=== PATIENT | female | born 1985 | race Two or more races ===

== ENCOUNTER 2017-10-07 10:37 | Emergency (ER) | payer MEDICAID ==
[~2017-10-07] VITALS: Ht 152.4 cm; Wt 59.0 kg
[2017-10-07 11:36] LABS: Basophils # (auto) 0 uL; Hemoglobin 10.8 g/dL (12.2-16.2); Lymphocytes # (auto) 1.8 uL; Mean Corpuscular Hgb Conc. 31.3 g/dL (32.0-36.0); Neutrophils # (auto) 2.3 uL; White Blood Cell 4.7 10^3/uL (4.4-10.8)
[2017-10-07 11:37] LABS: Basophils % (auto) 0.9 % (0.0-2.0); Eosinophils # (auto) 0.1 uL; Eosinophils % (auto) 2.9 % (0.0-7.0); Hematocrit 34.4 % (36.0-46.0); Lymphocytes % (auto) 37.9 % (10.0-50.0); Mean Corpuscular Hemoglobin 23.2 pg (28.0-32.0); Mean Corpuscular Volume 74.2 fL (80.0-100.0); Monocytes # (auto) 0.5 uL; Monocytes % (auto) 9.9 % (0.0-12.0); Neutrophils % (auto) 48.4 % (37.0-80.0); Nucleated Red Blood Cells % 0.6 %; Platelet Count (auto) 326 10^3/uL (140-450); Red Blood Cells 4.64 10^6/uL (4.0-5.20); Red Cell Distribution Width 16.1 % (11.8-14.3)
[2017-10-07 11:57] LABS: Albumin 3.8 g/dL (3.4-5.0); BUN/Creatinine Ratio 24.5; Bilirubin, Total 0.5 mg/dL (0.2-1.0); Calcium 8.6 mg/dL (8.5-10.1); Potassium 4.1 mmol/L (3.5-5.1); Total Protein 7.7 g/dL (6.4-8.2)
[2017-10-07] MEDS ORDERED: PANTOPRAZOLE 40 MG TAB PO ONE (12:00)
[2017-10-07 12:23] LABS: Amylase 51 U/L (25-115); Lipase 98 U/L (73-393)
[2017-10-07 13:19] LABS: Urine Bacteria FEW /hpf (None Seen); Urine Blood Negative /uL (Negative); Urine Specific Gravity 1.027 (1.001-1.035); Urine WBC 13 /hpf (0 - 5)
[2017-10-07 13:33] VITALS: BP 120/83
== END 2017-10-07 13:47 | disposition home or self-care (01) ==
LOC: ER 10:37
DX: N39.0 Urinary tract infection, site not specified (principal); K29.70 Gastritis, unspecified, without bleeding; M19.90 Unspecified osteoarthritis, unspecified site
CPT/HCPCS: 36415; 80053; 81001; 82150; 83690; 85025

== ENCOUNTER 2017-10-10 19:04 | Emergency (ER) | payer MEDICAID ==
[~2017-10-10] VITALS: Ht 152.4 cm; Wt 61.2 kg
[2017-10-10 20:41] LABS: Urine Bacteria NONE SEEN /hpf (None Seen); Urine Blood Negative /uL (Negative); Urine Specific Gravity 1.027 (1.001-1.035); Urine WBC 1 /hpf (0 - 5)
[2017-10-10 20:47] LABS: Basophils # (auto) 0 uL; Eosinophils # (auto) 0.2 uL; Monocytes # (auto) 0.5 uL
[2017-10-10 20:50] LABS: Basophils % (auto) 0.5 % (0.0-2.0); Eosinophils % (auto) 2.7 % (0.0-7.0); Hematocrit 32.6 % (36.0-46.0); Hemoglobin 10.5 g/dL (12.2-16.2); Lymphocytes # (auto) 2.1 uL; Lymphocytes % (auto) 31.1 % (10.0-50.0); Mean Corpuscular Hemoglobin 23.9 pg (28.0-32.0); Mean Corpuscular Hgb Conc. 32.2 g/dL (32.0-36.0); Monocytes % (auto) 7.8 % (0.0-12.0); Neutrophils % (auto) 57.9 % (37.0-80.0); Nucleated Red Blood Cells % 0.2 %; Platelet Count (auto) 301 10^3/uL (140-450); Red Blood Cells 4.41 10^6/uL (4.0-5.20); Red Cell Distribution Width 16.4 % (11.8-14.3); White Blood Cell 6.9 10^3/uL (4.4-10.8)
[2017-10-10 20:56] LABS: INR 0.91 (0.9-1.15); Partial Thromboplastin Time 26.6 sec (22.64-33.71); Prothrombin Time 9.9 sec (9.37-12.3)
[2017-10-10 21:08] LABS: Albumin 3.9 g/dL (3.4-5.0); BUN/Creatinine Ratio 21.4; Bilirubin, Total 0.2 mg/dL (0.2-1.0); Calcium 8.5 mg/dL (8.5-10.1); Magnesium 2.5 mg/dL (1.6-2.6); Potassium 3.7 mmol/L (3.5-5.1); Total Protein 7.8 g/dL (6.4-8.2)
[2017-10-11] MEDS ORDERED: ONDANSETRON HCL 4 MG/2 ML VIAL IV ONE (03:45)
[2017-10-11] MEDS ORDERED: MORPHINE SULFATE 4 MG/ML SYR/VIAL IV ONE (03:45)
[2017-10-11 06:31] VITALS: BP 111/68
== END 2017-10-11 06:44 | disposition home or self-care (01) ==
LOC: ER 19:04
DX: K29.70 Gastritis, unspecified, without bleeding (principal); M19.90 Unspecified osteoarthritis, unspecified site; Z98.51 Tubal ligation status
CPT/HCPCS: 36415; 74176; 76705; 80053; 81001; 81025; 82150; 83690; 83735; 84702; 85025; 85610; 85730; 96374; 96375; 99285; J2270; J2405

== ENCOUNTER 2018-09-27 20:11 | Emergency (ER) | payer MEDICAID ==
[~2018-09-27] VITALS: Ht 152.4 cm; Wt 61.2 kg
[2018-09-27 20:36] VITALS: BP 127/81
== END 2018-09-28 05:43 | disposition left against medical advice (07) ==
LOC: ER 20:16
DX: H92.02 Otalgia, left ear (principal); Z53.21 Procedure and treatment not carried out due to patient leaving prior to being seen by health care provider

== ENCOUNTER 2020-04-30 11:19 | Emergency (ER) | payer MEDICAID ==
[~2020-04-30] VITALS: Ht 152.4 cm; Wt 63.5 kg
[2020-04-30 11:26] VITALS: BP 130/81
[2020-04-30] MEDS ORDERED: IBUPROFEN 800 MG TAB PO ONE (14:15)
== END 2020-04-30 14:19 | disposition home or self-care (01) ==
LOC: ER 11:19
DX: S93.401A Sprain of unspecified ligament of right ankle, initial encounter (principal); Z98.51 Tubal ligation status; W18.00XA Striking against unspecified object with subsequent fall, initial encounter; Y93.89 Activity, other specified; Y92.89 Other specified places as the place of occurrence of the external cause; Y99.8 Other external cause status
CPT/HCPCS: 73610

== ENCOUNTER → 2021-03-16 | Emergency (ER) | payer MEDICAID ==
[~2021-03-16] VITALS: Ht 152.4 cm; Wt 63.5 kg
[~2021-03-16] MED LIST: FLUORESCEIN SOD OPTH TEST STRIP LEFTEYE ONE; TETRACAINE HCL 0.5% OPTH(EYE) SOLN 4ML LEFTEYE ONE
[2021-03-16 07:28] VITALS: BP 125/87
== END | disposition home or self-care (01) ==
LOC: ER 03:48
DX: S05.02XA Injury of conjunctiva and corneal abrasion without foreign body, left eye, initial encounter (principal); Z98.51 Tubal ligation status; X58.XXXA Exposure to other specified factors, initial encounter; Y93.89 Activity, other specified; Y92.89 Other specified places as the place of occurrence of the external cause; Y99.8 Other external cause status